=== PATIENT | male | born 1975 | race Caucasian/White ===

== ENCOUNTER → 2017-05-26 | Emergency (ER) | payer OTHER ==
[~2017-05-26] VITALS: Ht 177.8 cm; Wt 104.3 kg
[~2017-05-26] MED LIST: ADENOCARD; DOXYCYCLINE HY100 M2 PO; STRIBILD TABLE1 EACH PO
== END | disposition home or self-care (01) ==
LOC: ER 02:41
DX: A64 Unspecified sexually transmitted disease (principal); Z20.2 Contact with and (suspected) exposure to infections with a predominantly sexual mode of transmission